=== PATIENT | female | born 1985 | race American Indian/Alaskan Native ===

== ENCOUNTER 2017-04-30 20:12 | Inpatient (IN) | payer OTHER, MEDICAID ==
--- NOTE | 2017-04-30 20:51 | History and Physical Report ---
History of Present Illness Date of examination: 04/30/17 History of present illness: EDC Confirmation: 05/05/2017 Gestational Age: 14 weeks Past History : 2 Term Births: 1 Living Children: 1 Para: 1 # 1 Delivery date: 03/20/2012 Weeks Gestation: 41 labor: no Delivery type: Anesthesia type: epidural Delivery location: [facility] Infant Sex: Male weight: 7-5 Name: Justin Comments: denies complications Risk Factors: Smoked Tobacco Use: Never smoker Smokeless Tobacco Use: Never Passive smoke exposure: no Drug use: no HIV high-risk behavior: low risk Caffeine use: 0 drinks per day Alcohol use: no Seatbelt use: preg-phone counselor % Past Medical History: Reviewed history from 09/05/2011 and no changes required: Asthma no sti hx no abd pap hx Past Surgical History: Reviewed history from 09/05/2011 and no changes required: Negative Past Surgical History Past Medical History Abnormal PAP: negative SALVADOR Exposure: negative Infertility: negative Uterine Anomaly: negative Uterine Surgery (not C/S): negative Other Gynecologic Problems: negative Social Hx: Patient is single no etoh, no illicit drug use, no tobacco use Patient is Infection History Hx of STD: none HIV Risk Eval: low risk Hepatitis B Risk Eval: low risk Personal hx. of genital herpes: no Partner hx. of genital herpes: no Rash, Viral, or Febrile illness since last LMP? no Varicella/Chicken Pox Status: Previous Disease TB Risk: no Genetic History Congenital Heart Defect: Mom: no Dad: no Bib Disease: Mom: no Dad: no Thalassemia Mom: no Dad: no Neural Tube Defect Mom: no Dad: no Down's Syndrome Mom: no Dad: no Yoseph-Sachs Mom: no Dad: no Sickle Cell Disease/Trait Mom: no Dad: no Hemophilia Mom: no Dad: no Muscular Dystrophy Mom: no Dad: no Cystic Fibrosis Mom: no Dad: no Reynolds Chorea Mom: no Dad: no Mental Retardation Mom: no Dad: no Fragile X Mom: no Dad: no Other Genetic/Chromosomal Disorder Mom: no Dad: no Child w/other defect Mom: no Dad: no Enviromental Exposures Xray Exposure: no Medication, drug, or alcohol use since LMP: no Chemical/Other Exposure: no Exposure to Cat Liter: no Hx of Parvovirus (Fifth Disease): no Occupational Exposure to Children: none Current Allergies: No known allergies Laboratory Results Date/Time Collected: 11/04/2016 Routine Urinalysis Leukocytes: negative Nitrite: negative Urobilinogen: negative Protein: Negative Blood: negative Ketone: negative Bilirubin: negative Glucose: Negative Urine HCG: positive Review of Systems General Denies fever, chills, sweats, anorexia, fatigue, weakness, malaise, weight loss and sleep disorder. Denies nausea, vomiting, headache, swelling of legs, abdominal pain, vaginal discharge, vaginal bleeding and contractions. Denies vaginal discharge, incontinence, dysuria, hematuria, urinary frequency, amenorrhea, menorrhagia, abnormal vaginal bleeding, pelvic pain, genital sores, decreased libido, painful periods, painful sex, urinary urgency, hot flashes, vaginal dryness, vaginal itching and vaginal odor. CV Denies chest pains, palpitations, syncope, dyspnea on exertion, orthopnea, PND and peripheral edema. Resp Denies cough, dyspnea at rest, excessive sputum, hemoptysis, wheezing and pleurisy. GI Denies nausea, vomiting, diarrhea, constipation, change in bowel habits, abdominal pain, melena, hematochezia, jaundice, gas/bloating, indigestion/ heartburn, dysphagia and odynophagia. Endo Denies cold intolerance, heat intolerance, polydipsia, polyphagia, polyuria and unusual weight change. Breast Denies left breast lump, right breast lump, nipple discharge, bloody discharge from nipple, breast pain, abnormal mammogram and breast enlargement. MS Denies back pain, joint pain, joint swelling, muscle cramps, muscle weakness, stiffness, arthritis, sciatica, restless legs, leg pain at night and leg pain with exertion. Derm Denies rash, itching, dryness and suspicious lesions. Neuro Denies paralysis, paresthesias, headache, seizures, tremors, vertigo, transient blindness, frequent falls, frequent headaches and difficulty walking. Psych Denies depression, anxiety, irritability and mood swings. Eyes Denies blurring, diplopia, irritation, discharge, vision loss, eye pain and photophobia. ENT Denies earache, ear discharge, tinnitus, decreased hearing, nasal congestion, nosebleeds, sore throat and hoarseness. Allergy Denies urticaria, allergic rash, hay fever and recurrent infections. Heme Denies abnormal bruising, bleeding and enlarged lymph nodes. Past History - Obstetrical History Expected Date of Delivery: 05/05/17 Actual Gestation: 39 Week(s) 2 Day(s) : 2 Para: 1 Hx # Term Pregnancies: 1 Number of Living Children: 1 Medications and Allergies Allergies Allergy/AdvReac Type Severity Reaction Status Date / Time No Known Allergies Allergy Unverified 05/11/15 08:31 Home Medications Medication Instructions Recorded Confirmed Last Taken Type Ibuprofen [Motrin 800 MG tab] 800 mg PO TID PRN #30 tablet 05/11/15 Unknown Rx methOCARBAMOL [Robaxin TAB] 500 mg PO BID #14 tab 05/11/15 Unknown Rx - Vital Signs Vital signs: Vital Signs Pulse BP 98 H 140/82 04/30/17 20:23 04/30/17 20:23 Temp Pulse Resp BP Pulse Ox 97.7 F 98 H 18 140/82 04/30/17 20:25 04/30/17 20:23 04/30/17 20:25 04/30/17 20:23 - Physical Exam Breasts: Positive: deferred Cardiovascular: Regular rate, Normal S1, Normal S2 Lungs: Positive: Normal air movement Abdomen: Positive: normal appearance, soft, normal bowel sounds. Negative: distention, tenderness Genitourinary (Female): Positive: normal external genitalia Vulva: both: normal Vagina: Positive: normal moisture. Negative: discharge Cervix: Negative: lesion, discharge Uterus: Positive: normal size, normal contour Adnexa: both: normal Anus/Rectum: Positive: normal perianal skin, heme negative. Negative: rectal mass, hemorrhoids Extremities: Positive: normal Deep Tendon Reflex Grade: Normal +2 - Obstetrical FHR: category 1 Uterine Contraction Monitor Mode: External Cervical Dilatation: 4.5 Cervical Effacement Percentage: 90 station: -1 Uterine Contraction Pattern: Regular Uterine Contraction Intensity: Moderate Results All other labs normal. Laboratory Data-Patient Name: JOSE MANUEL RODRIGUEZ Test Date Result Blood Type 11/18/2016 O Rh 11/18/2016 Positive Antibody Screen negative Rubella 11/18/2016 IMMUNE Serology (RPR) 04/01/2017 NR HBsAg 11/18/2016 Negative Hemoglobin 01/27/2017 10.0 Hematocrit 01/27/2017 31.0 Platelets 11/18/2016 289 [id number] Chlamydia DNA 04/01/2017 Negative GC DNA/Culture 04/01/2017 Urine Culture 11/18/2016 negative Group B Strep cult Negative PAP HIV 04/01/2017 AFP/Quad Screen 11/18/2016 Glucola Test 3hr GTT (Fasting) 1 hr 2 hr 3 hr [facility]-Patient Name:JOSE MANUEL RODRIGUEZ Test Date Result Varicella Ab Sickle Cell 11/18/2016 Negative PPD Fibronectin Cystic Fibrosis Parvovirus TSH Free T4 Hepatitis C ALT AST Uric Acid Creatinine 24 hr Urine Protein DINH Assessment and Plan 31yo @ 39 weeks in active labor GBS negative Orders in EMR Anticipate delivery
[2017-04-30] MEDS ORDERED: LACTATED RINGERS 1,000 ML ONE (20:52)
[2017-04-30] MEDS ORDERED: ePHEDrine SULFATE IV PRN ×2 (20:54→21:45)
[2017-04-30] MEDS ORDERED: XYLOCAINE 2% INFILTRATI ONE (20:54)
[2017-04-30] MEDS ORDERED: ZOFRAN IV PRN (20:54)
[2017-04-30] MEDS ORDERED: BRETHINE IVP PRN (20:54)
[2017-04-30] MEDS ORDERED: MINERAL OIL PO PRN (20:54)
[2017-04-30] MEDS ORDERED: SUBLIMAZE IV PRN (20:54)
[2017-04-30] MEDS ORDERED: BRETHINE SUB-Q PRN (20:54)
[2017-04-30] MEDS ORDERED: LACTATED RINGERS 1,000 ML IV SCH (21:00)
[2017-04-30] MEDS ORDERED: PITOCin/NS 30 UNIT/500ML 30 UNITS/500 ML BAG IV SCH (21:00)
[2017-04-30] MEDS ORDERED: PITOCin/NS 20 UNIT/1000ML DRIP 20 UNITS/1,000 ML BAG IV SCH (21:00)
[2017-04-30 21:33] LABS: White Blood Count 9.5 K/mm3 (4.5-11.0)
[2017-04-30 21:34] LABS: Hematocrit 37.5 % (30.3-42.9); Hemoglobin 12.2 gm/dl (10.1-14.3); Mean Corpuscular HGB Conc 33 % (30-34); Mean Corpuscular Hemoglobin 28 pg (28-32); Mean Corpuscular Volume 86 fl (79-97); Platelet Count 215 K/mm3 (140-440); Red Blood Count 4.38 M/mm3 (3.65-5.03); Red Cell Distribution Width 13.4 % (13.2-15.2)
[2017-04-30] MEDS ORDERED: NARCAN 2 MG/2 ML IV PRN (21:45)
--- NOTE | 2017-04-30 21:45 | Anesthesia Consultation ---
Anesthesia Consult and Med Hx Date of service: 04/30/17 - Airway Anesthetic Teeth Evaluation: Good ROM Head & Neck: Adequate Mental/Hyoid Distance: Adequate Mallampati Class: Class II Intubation Access Assessment: Probably Good - Pulmonary Exam CTA: Yes - Cardiac Exam Cardiac Exam: RRR - Pre-Operative Health Status ASA Pre-Surgery Classification: ASA2 Proposed Anesthetic Plan: Epidural - Pulmonary Hx Asthma: Yes (no inhaler) COPD: No Hx Pneumonia: No - Cardiovascular System Hx Hypertension: No - Central Nervous System Hx Seizures: No Hx Psychiatric Problems: No - Endocrine Hx Renal Disease: No Hx End Stage Renal Disease: No Hx Hypothyroidism: No Hx Hyperthyroidism: No - Hematic Hx Anemia: No Hx Sickle Cell Disease: No - Other Systems Hx Alcohol Use: No
[2017-04-30] MEDS ORDERED: fentaNYL-BUPIV 2 MCG/ML-0.125% 200 MCG/100 ML BAG EPIDURAL SCH (22:00)
[2017-04-30] MEDS ORDERED: BENADRYL PO PRN (23:18)
[2017-04-30] MEDS ORDERED: TYLENOL PO PRN (23:18)
[2017-04-30] MEDS ORDERED: MILK OF MAGNESIA PO PRN (23:18)
[2017-04-30] MEDS ORDERED: DULCOLAX PR PRN (23:18)
[2017-04-30] MEDS ORDERED: LANSINOH TP PRN (23:18)
[2017-04-30] MEDS ORDERED: TUCKS PAD TP PRN (23:18)
[2017-04-30] MEDS ORDERED: PHENERGAN PO PRN (23:18)
--- NOTE | 2017-04-30 23:28 | Procedure Note ---
OB Delivery Note - Delivery Date of Delivery: 04/30/17 Groundman/Lineman: ALDA LEMUS Estimated blood loss: 300cc - Vaginal Delivery presentation: vertex Delivery position: OA Intrapartum events: meconium (AROM just prior to delivery NICU team present), mult.variable deceleratio Delivery induction: none Delivery augmentation: pitocin Delivery monitor: external uterine, internal FHT Route of delivery: Delivery placenta: spontaneous Delivery cord: 3 umbilical vessels Episiotomy: none Delivery laceration: none Anesthesia: epidural Delivery comments: Prolong decel noted just after epidural approx 30 min SVE AROM thick meconium 9,100,0 ISE applied. NICU team called to room. live born female over intact perineum Cord clamped and cut passed to waiting NICU team. Cord blood obtained Placenta and membrane del complete and intact, 3 vessel cord. Placenta to pathology Pit IVFs 8/9, EBL 300, Wgt 5- 8 Mom and baby remain LDR stable - A at 1 minute: 8 at 5 minutes: 9 Infant Gender: Female (wgt 5-8)
[2017-04-30] MEDS ORDERED: SODIUM CHLORIDE FLUSH SYRINGE 10 ML IV NR (23:45)
[2017-05-01] MEDS: MOTRIN PO SCH ×5 (00:23→23:30)
[2017-05-01] MEDS: NORCO 5/325 PO PRN (01:30)
[2017-05-01 02:33] LABS: Bilirubin,Urine Negative (Negative); Blood,Urine Trace (Negative); Ketones,Urine 15 mg/dL (Negative); Leukocyte Esterase,Urine Negative (Negative); Nitrite,Urine Negative (Negative); Urobilinogen,Urine 0.2 mg/dL (<2.0)
[2017-05-01 05:08] LABS: Hematocrit 33.5 % (30.3-42.9); Hemoglobin 10.9 gm/dl (10.1-14.3); Mean Corpuscular HGB Conc 33 % (30-34); Mean Corpuscular Hemoglobin 28 pg (28-32); Mean Corpuscular Volume 86 fl (79-97); Platelet Count 205 K/mm3 (140-440); Red Cell Distribution Width 13.4 % (13.2-15.2); White Blood Count 11.9 K/mm3 (4.5-11.0)
[2017-05-01 05:26] LABS: Lactate Dehydrogenase 178 units/L (91-180); Uric Acid 3.9 mg/dL (3.5-7.6)
[2017-05-01] MEDS ORDERED: BOOSTRIX IM ONE (06:00)
[2017-05-01] MEDS ORDERED: M-M-R II VACCINE SUB-Q ONE (06:00)
[2017-05-01] MEDS: PERCOCET 5/325 PO PRN ×3 (06:13→22:44)
--- NOTE | 2017-05-01 10:01 | Progress Note ---
Subjective Date of service: 05/01/17 Interval history: 1st day after normal vaginal delivery Patient is in the bed, comfortable. Pain is well under control.Ambulated well. No residual neurological deficit. No anesthesia complications Objective - Constitutional Vitals: Vital Signs - 12hr 04/30/17 04/30/17 04/30/17 22:01 22:03 22:05 Temperature Pulse Rate 101 H 101 H 105 H Pulse Rate [ Right Brachial] Respiratory Rate Blood Pressure 152/74 138/67 136/73 Blood Pressure [Right Arm] O2 Sat by Pulse 99 Oximetry 04/30/17 04/30/17 04/30/17 22:06 22:08 22:09 Temperature Pulse Rate 110 H 116 H 105 H Pulse Rate [ Right Brachial] Respiratory Rate Blood Pressure 146/77 143/76 Blood Pressure [Right Arm] O2 Sat by Pulse 99 91 Oximetry 04/30/17 04/30/17 04/30/17 22:11 22:12 22:16 Temperature Pulse Rate 114 H 107 H 112 H Pulse Rate [ Right Brachial] Respiratory Rate Blood Pressure 133/66 Blood Pressure [Right Arm] O2 Sat by Pulse 98 98 Oximetry 04/30/17 04/30/17 04/30/17 22:21 22:26 22:31 Temperature Pulse Rate 99 H 108 H 115 H Pulse Rate [ Right Brachial] Respiratory Rate Blood Pressure Blood Pressure [Right Arm] O2 Sat by Pulse 97 97 97 Oximetry 04/30/17 04/30/17 04/30/17 22:33 22:36 22:41 Temperature Pulse Rate 108 H 127 H 129 H Pulse Rate [ Right Brachial] Respiratory Rate Blood Pressure 142/77 Blood Pressure [Right Arm] O2 Sat by Pulse 100 100 Oximetry 04/30/17 04/30/17 04/30/17 23:00 23:14 23:29 Temperature Pulse Rate 113 H 102 H 90 Pulse Rate [ Right Brachial] Respiratory Rate Blood Pressure 123/105 133/111 142/110 Blood Pressure [Right Arm] O2 Sat by Pulse Oximetry 04/30/17 04/30/17 04/30/17 23:42 23:44 23:50 Temperature Pulse Rate 85 85 87 Pulse Rate [ Right Brachial] Respiratory Rate Blood Pressure 144/75 161/76 166/81 Blood Pressure [Right Arm] O2 Sat by Pulse Oximetry 04/30/17 05/01/17 05/01/17 23:59 00:01 00:14 Temperature 98.5 F Pulse Rate 90 81 Pulse Rate [ Right Brachial] Respiratory 18 Rate Blood Pressure 148/74 159/77 Blood Pressure [Right Arm] O2 Sat by Pulse Oximetry 05/01/17 05/01/17 05/01/17 00:23 00:29 01:00 Temperature 98.0 F Pulse Rate 85 Pulse Rate [ 89 Right Brachial] Respiratory 18 20 Rate Blood Pressure 130/62 Blood Pressure 165/86 [Right Arm] O2 Sat by Pulse Oximetry 05/01/17 05/01/17 05/01/17 02:10 04:00 08:20 Temperature 98.1 F 98.4 F 98.0 F Pulse Rate Pulse Rate [ 90 87 93 H Right Brachial] Respiratory 18 20 18 Rate Blood Pressure Blood Pressure 134/84 139/64 144/78 [Right Arm] O2 Sat by Pulse Oximetry - Labs CBC & Chem 7: 05/01/17 04:30 05/01/17 04:30 Labs: Abnormal lab results 05/01/17 05/01/17 Range/Units 04:30 04:30 WBC 11.9 H (4.5-11.0) K/mm3 Creatinine 0.5 L (0.7-1.2) mg/dL
[2017-05-01] MEDS: COLACE PO SCH ×2 (10:38→22:44)
[2017-05-01] MEDS: PRENATAL VITAMIN PO SCH (10:38)
--- NOTE | 2017-05-01 12:43 | Progress Note ---
Assessment and Plan - Patient Problems (1) Spontaneous vaginal delivery Current Visit: Yes Status: Acute Plan to address problem: Patient doing well continue routine care. Patient is bottlefeeding desires Depo-Provera for control Subjective - Subjective Date of service: 05/01/17 Patient reports: appetite normal, voiding normally, pain well controlled, ambulating normally [place]: doing well, bottle feeding Objective - Vital Signs Latest vital signs: Vital Signs Temp Pulse Pulse Resp BP BP Pulse Ox 05/01/17 08:20 98.0 F 93 H 18 144/78 05/01/17 04:00 98.4 F 87 20 139/64 05/01/17 02:10 98.1 F 90 18 134/84 05/01/17 01:00 98.0 F 89 20 165/86 05/01/17 00:29 85 130/62 05/01/17 00:23 18 05/01/17 00:14 81 159/77 05/01/17 00:01 98.5 F 18 04/30/17 23:59 90 148/74 04/30/17 23:50 87 166/81 04/30/17 23:44 85 161/76 04/30/17 23:42 85 144/75 04/30/17 23:29 90 142/110 04/30/17 23:14 102 H 133/111 04/30/17 23:00 113 H 123/105 04/30/17 22:41 129 H 100 04/30/17 22:36 127 H 100 04/30/17 22:33 108 H 142/77 04/30/17 22:31 115 H 97 04/30/17 22:26 108 H 97 04/30/17 22:21 99 H 97 04/30/17 22:16 112 H 98 04/30/17 22:12 107 H 133/66 04/30/17 22:11 114 H 98 04/30/17 22:09 105 H 143/76 91 04/30/17 22:08 116 H 146/77 04/30/17 22:06 110 H 99 04/30/17 22:05 105 H 136/73 04/30/17 22:03 101 H 138/67 04/30/17 22:01 101 H 152/74 99 04/30/17 21:59 109 H 18 143/77 04/30/17 21:57 115 H 154/90 04/30/17 21:56 115 H 99 04/30/17 21:55 114 H 143/94 04/30/17 21:52 105 H 94 04/30/17 21:51 105 H 94 04/30/17 21:46 88 99 04/30/17 21:44 99 H 92 04/30/17 21:41 98 H 99 04/30/17 21:38 102 H 90 04/30/17 21:36 103 H 91 04/30/17 21:31 92 H 99 04/30/17 21:29 20 04/30/17 21:26 106 H 98 04/30/17 21:21 110 H 98 04/30/17 21:20 96 H 91 04/30/17 21:16 93 H 100 04/30/17 21:12 97.9 F 22 04/30/17 21:11 111 H 98 04/30/17 21:06 102 H 95 04/30/17 21:01 89 97 04/30/17 20:56 90 136/77 99 04/30/17 20:25 97.7 F 18 04/30/17 20:23 98 H 140/82 Intake and Output 04/30/17 05/01/17 05/01/17 22:59 06:59 14:59 Intake Total 1000 500 120 Output Total 400 Balance 1000 100 120 Intake: IV 1000 Lactated Ringers 1,000 ml 1000 @ 125 mls/hr IV DIRECT [facility] Rx#:[id number] Oral 500 120 Output: Urine 400 Void 400 Other: Total, Intake Amount 500 120 Total, Output Amount 400 # Voids Void 2 Weight 210 lb Estimated Blood Loss 300 - Exam Breasts: Present: deferred Cardiovascular: Present: Regular rate Abdomen: Present: normal appearance, soft Uterus: Present: firm, fundal height below umbilicus Extremities: Present: normal, edema - Labs Labs: Abnormal lab results 05/01/17 05/01/17 Range/Units 04:30 04:30 WBC 11.9 H (4.5-11.0) K/mm3 Creatinine 0.5 L (0.7-1.2) mg/dL
[2017-05-01 12:51] LABS: Hematocrit 32.5 % (30.3-42.9); Hemoglobin 10.7 gm/dl (10.1-14.3)
[2017-05-02] MEDS: MOTRIN PO SCH ×2 (05:40→13:41)
[2017-05-02] MEDS: PERCOCET 5/325 PO PRN (05:41)
[2017-05-02] MEDS: COLACE PO SCH (10:52)
[2017-05-02] MEDS: PRENATAL VITAMIN PO SCH (10:52)
--- NOTE | 2017-05-02 12:27 | Discharge Summary ---
Providers - Providers Date of Admission: 04/30/17 20:52 Date of discharge: 05/02/17 Attending physician: GRAYSON HENSON Primary care physician: GRAYSON HENSON Hospitalization Reason for admission: active labor Delivery: Laceration: none Other procedures: none, tubal ligation Discharge diagnosis: IUP at term delivered baby: female Hospital course: Patient was admitted underwent a normal spontaneous vaginal delivery. Patient' s labor was complicated by elevated blood pressures resolved . Her course was benign. She was afebrile throughout her stay. Her day 1 hematocrit was 29.3%. Condition at discharge: Good Disposition: DC-01 TO HOME OR SELFCARE - Discharge Diagnoses (1) Spontaneous vaginal delivery Status: Acute (2) Anemia due to blood loss, acute Status: Acute (3) Elevated blood pressure affecting in third trimester, antepartum Status: Acute Plan - Discharge Medications Prescriptions: Ferrous Sulfate [Feosol 325 MG tab] 325 mg PO BID #60 tablet Ibuprofen [Motrin 800 MG tab] 800 mg PO Q6H PRN #30 tablet PRN Reason: Pain - Provider Discharge Summary Activity: routine, no sex for 6 weeks Diet: routine Instructions: routine Additional instructions: [] Smoking cessation referral if applicable(refer to patient education folder for contact #) [] Refer to [facility] Booklet Call your doctor immediately for: * Fever > 100.5 * Heavy vaginal bleeding ( >1 pad per hour) * Severe persistent headache * Shortness of breath * Reddened, hot, painful area to leg or breast * Drainage or odor from incision. * Keep incision clean and dry at all times and follow doctor's instructions regarding bathing/showering Patient follow-up in 1 week for blood pressure check - Follow up plan Follow up: GRAYSON HENSON MD [Primary Care Provider] - 7 Days
[2017-05-02] MEDS: NORCO 5/325 PO PRN (13:41)
[2017-05-02 17:21] VITALS: BP 128/68
== END 2017-05-02 16:30 | disposition home or self-care (01) | DRG 775 ==
LOC: TRG 20:12 → LD 20:52 → OB 05-01 00:55
PROVIDERS: ADMIT Obstetrics & Gynecology; ATTEND Obstetrics & Gynecology
PROC: 10E0XZZ Delivery of Products of Conception, External Approach (ICD-10-PCS; principal; 2017-04-30)
PROC: 00HU33Z Insertion of Infusion Device into Spinal Canal, Percutaneous Approach (ICD-10-PCS; 2017-04-30)
PROC: 3E0R3CZ (ICD-10-PCS; 2017-04-30)
DX: O76 Abnormality in fetal heart rate and rhythm complicating labor and delivery (principal); D62 Acute posthemorrhagic anemia; O77.0 Labor and delivery complicated by meconium in amniotic fluid; Z3A.39 39 weeks gestation of pregnancy; Z37.0 Single live birth; O99.52 Diseases of the respiratory system complicating childbirth; J45.909 Unspecified asthma, uncomplicated; O99.02 Anemia complicating childbirth; R03.0 Elevated blood-pressure reading, without diagnosis of hypertension; O75.89 Other specified complications of labor and delivery
CPT/HCPCS: 36415; 81001; 82565; 83615; 84450; 84460; 84550; 85014; 85018; 85027; 86592; 86850; 86900; 86901; 88307; 90471; 90715; J2405; J2590; J3010; J7120; Q0169